=== PATIENT | female | born 1995 | race Caucasian/White ===

== ENCOUNTER 2017-03-14 00:15 | Emergency (ER) | payer MEDICAID ==
[2017-03-14 00:49] LABS: BASOPHIL % 0.3 % (0-2); PLATELET COUNT 249 x10^3mcL (130-400); RED CELL DISTRIBUTION WIDTH 12.9 % (11.5-14.5)
[2017-03-14 01:03] LABS: CALCIUM 9.5 mg/dL (8.5-10.1); CARBON DIOXIDE 27.1 mmol/L (21-32); CHLORIDE SERUM 101 mmol/L (98-107); CREATININE SERUM 0.6 mg/dL (0.6-1.0); GFR1 > 60 mL/min; GLUCOSE SERUM 93 mg/dL (74-106); POTASSIUM SERUM 3.6 mmol/L (3.5-5.1); SODIUM SERUM 138 mmol/L (136-145)
[2017-03-14 01:07] LABS: ALBUMIN 4.1 g/dL (3.4-5.0); ALKALINE PHOSPHATASE 79 U/L (46-116); ALT/SGPT 16 U/L (14-59); AST/SGOT 14 U/L (15-37); BILIRUBIN TOTAL 0.9 mg/dL (0.20-1.00); LIPASE 144 IU/L (73-393); TOTAL PROTEIN, SERUM 7.4 g/dL (6.4-8.2)
[2017-03-14 03:41] VITALS: BP 118/77
== END 2017-03-14 03:41 | disposition home or self-care (01) ==
LOC: ED 00:15
PROVIDERS: Emergency Medicine
DX: R10.13 Epigastric pain (principal); R11.0 Nausea; Z87.11 Personal history of peptic ulcer disease
CPT/HCPCS: 36415; J1885; Q0092; Q0162

== ENCOUNTER 2019-08-17 14:11 | Emergency (ER) | payer MEDICAID ==
[~2019-08-17] VITALS: Ht 172.7 cm; Wt 60.6 kg
[2019-08-17 15:00] VITALS: BP 114/45; Ht 172.7 cm; Wt 60.6 kg
== END 2019-08-17 16:50 | disposition home or self-care (01) ==
LOC: ED 14:11
DX: G44.209 Tension-type headache, unspecified, not intractable (principal)

== ENCOUNTER 2019-08-19 19:50 | Emergency (ER) | payer MEDICAID ==
[~2019-08-19] VITALS: Ht 157.5 cm; Wt 60.8 kg
[2019-08-19 20:05] VITALS: Ht 157.5 cm; Wt 60.8 kg
[2019-08-19 22:15] VITALS: BP 106/74
== END 2019-08-19 22:15 | disposition home or self-care (01) ==
LOC: ED 19:50
DX: R42 Dizziness and giddiness (principal); R51 Headache; R11.0 Nausea; K21.9 Gastro-esophageal reflux disease without esophagitis